=== PATIENT | male | born 1965 | race Hispanic/Latino ===

== ENCOUNTER 2017-06-21 17:50 | Emergency (ER) | payer OTHER ==
[~2017-06-21] VITALS: Ht 167.6 cm; Wt 95.7 kg
[2017-06-21] MEDS ORDERED: DIPHTH/TETANUS/ACEL. PERTUSSIS 0.5 ML SYR IM ONE (18:30)
[2017-06-21 19:10] VITALS: BP 138/82
== END 2017-06-21 19:00 | disposition home or self-care (01) ==
LOC: FSED 17:50
DX: S61.217A Laceration without foreign body of left little finger without damage to nail, initial encounter (principal); W29.3XXA Contact with powered garden and outdoor hand tools and machinery, initial encounter; Y92.008 Other place in unspecified non-institutional (private) residence as the place of occurrence of the external cause; I10 Essential (primary) hypertension; E11.9 Type 2 diabetes mellitus without complications; E78.5 Hyperlipidemia, unspecified
CPT/HCPCS: 99283

== ENCOUNTER → 2018-09-20 | Outpatient (CLI) | payer OTHER ==
--- NOTE | 2018-09-20 11:18 | Diagnostic Imaging Report ---
EXAM: US ABDOMEN COMPLETE INDICATION: Left upper quadrant pain. COMPARISON: None TECHNIQUE: Transverse and longitudinal brown scale and color doppler sonographic images of the abdomen were obtained. FINDINGS: LIVER 15.3 cm in the right midclavicular line. Increased echogenicity of the liver with normal contour, no masses. SPLEEN 8.9 cm in maximum diameter. Normal echogenicity, no masses. GALLBLADDER No gallbladder wall thickening, distension, stone, or pericholecystic fluid. Negative reported sonographic Garces's sign. BILE DUCTS No intra nor extra-hepatic biliary dilation. Common bile duct measures 0.3 cm PANCREAS: Obscured by overlying bowel gas. RIGHT KIDNEY: 10.1 cm Echogenicity: Normal Collecting System: No hydronephrosis Stones: None Cyst/Mass: None LEFT KIDNEY: 11.7 cm Echogenicity: Normal Collecting System: No hydronephrosis Stones: None Cyst/Mass: None VESSELS: Aorta: Partially obscured by overlying bowel gas. Inferior Vena Cava: Visualized portions are normal Main Portal Vein: 0.8 cm, normal size with hepatopetal flow. FREE FLUID: None IMPRESSION: Hepatic steatosis. Signed by: Dr. Jeyson Staton MD on 09/20/2018 11:15 AM
== END ==
LOC: US 09:16
PROVIDERS: ATTEND Family Medicine
DX: R10.12 Left upper quadrant pain (principal); K76.0 Fatty (change of) liver, not elsewhere classified
CPT/HCPCS: 76700

== ENCOUNTER → 2018-10-12 | Day surgery (SDC) | payer OTHER ==
[2018-10-06 12:33] LABS: BASOPHILS % 0.5 % (0.0-1.0); EOSINOPHILS # (AUTO) 0.2 (0.0-0.4); EOSINOPHILS % 1.9 % (0.0-6.0); HEMATOCRIT 47.2 % (38.2-49.6); HEMOGLOBIN 16.2 g/dL (14.0-18.0); LYMPHOCYTES # (AUTO) 3.2 (1.0-3.2); LYMPHOCYTES % 40.8 % (18.0-39.1); MEAN CORPUSCULAR HEMOGLOBIN 29.9 pg (28-32); MEAN CORPUSCULAR HGB CONC 34.3 g/dL (31-35); MEAN CORPUSCULAR VOLUME 87.1 fL (81-99); MONOCYTES # (AUTO) 0.6 (0.2-0.8); NEUTROPHILS # (AUTO) 3.7 (2.1-6.9); NEUTROPHILS % 48.3 % (38.7-80.0); PLATELET COUNT 213 x10e3/uL (140-360); RED BLOOD COUNT 5.42 x10e6/uL (4.3-5.7); RED CELL DISTRIBUTION WIDTH 12.6 % (11.7-14.4)
[2018-10-06 13:09] LABS: ANION GAP 13.8 mmol/L (8-16); BLOOD UREA NITROGEN 11 mg/dL (7-26); BUN/CREATININE RATIO 13 (6-25); CALCIUM 9.8 mg/dL (8.4-10.2); CARBON DIOXIDE 31 mmol/L (22-29); CHLORIDE 98 mmol/L (98-107); CREATININE, SERUM 0.87 mg/dL (0.72-1.25); EST GLOMERULAR FILTRATION RATE > 60 ML/MIN (60-); GLUCOSE 147 mg/dL (74-118); POTASSIUM 3.8 mmol/L (3.5-5.1); SODIUM 139 mmol/L (136-145)
[~2018-10-12] MED LIST: ACETAMINOPHEN 1000 MG/100 ML 100 ML IV ONE; ACETAMINOPHEN 1000 MG/100 ML IV ONE; ASPIRIN325 MG PO; ATORVASTATIN CA20 MG PO; BUPIVACAINE 0.5%/EPI 30 ML SDV INJ ONE; CEFAZOLIN SOD 1 GM/NS 50ML 100 ML IV ONE; DEXAMETHASONE SOD PHOS INJ 4 MG/ML VIAL ONE; KETOROLAC TROMETHAMINE 30 MG/ML VIAL ONE; LIDOCAINE HCL 2% LOCAL INJ 5 ML SDV VIAL INJ ONE; LISINOPRIL10 MG PO; METFORMIN HCL500 MG PO; ONDANSETRON HCL INJ 2MG/ML 2ML 2 MG/ML VIAL ONE; PROPOFOL IV EMULSION 10 MG/ML 20 ML VIAL ONE; SEVOFLURANE INHAL SOLN 250 ML PEN BTL ONE
--- OUTSIDE RECORDS SUMMARY | 2018-10-12 10:22 | XMS REPORT | Clinical Summary ---
Author Author [facility] Address Unknown Phone Unavailable Care Team Providers Care Production Lapping Machine Operator Name Role Phone Rafi Park MD PCP Allergies No Known Allergies Medications End Date Status Medication Sig Dispensed Refills Start Date Active lisinopril-hydroCHLOROthi Take 1 tablet 0 azide by mouth (PRINZIDE,ZESTORETIC) daily. 20-25 mg per tablet Active metFORMIN (GLUCOPHAGE) Take 500 mg 0 500 MG tablet by mouth 2 (two) times daily with breakfast and dinner. Active atorvastatin (LIPITOR) 10 Take 10 mg by 0 MG tablet mouth nightly. Active cephalexin (KEFLEX) 500 Take 500 mg 0 MG capsule by mouth daily. Active aspirin 81 MG EC tablet Take 81 mg by 0 mouth daily. Active Problems Not on file Social History Date Tobacco Use Types Packs/Day Years Used Never Smoker Smokeless Tobacco: Never Used Alcohol Use Drinks/Week oz/Week Comments No Sex Assigned at Date Recorded Not on file Industry Job Start Date Occupation Not on file Not on file Not on file Travel End Travel History Travel Start No recent travel history available. Last Filed Vital Signs Not on file Plan of Treatment Not on file Results Not on fileafter 10/11/2017 Insurance Payer Benefit Subscriber ID Type Phone Address Plan / Group JUAN MARTINEZ xxxxxxxxxxx [employer]
--- OUTSIDE RECORDS SUMMARY | 2018-10-12 10:23 | XMS REPORT ---
Author Organization Unknown Address [address] [place] [address] Phone [phone] Care Team Providers Care Account Manager Education Name Role Phone Rafi Park Unavailable Unavailable Allergies Code Code System Name Reaction Severity Status Onset NKDA Medications Name Status Start Date Stop Date aspirin 81mg po qd Active Not available atorvastatin 10 mg tablet Active Not available lisinopril 20 mg-hydrochlorothiazide 25 mg tablet Active Not available metformin 500 mg tablet Active Not available Suprep Bowel Prep Kit 17.5 gram-3.13 gram-1.6 gram oral solution Active Not available Problems Name Status Onset Date Source Benign Essential Hypertension Active 05/13/2017 Mixed Hyperlipidemia Active 05/20/2017 Impaired Fasting Glycaemia Active 05/20/2017 Procedures Date Name Performed by 04/20/2017 Colonoscopy Information not available Notes: NO SURGERIES Lab Results Date Name Specimen Result Interpretation Description Value Range Status Address 05/20/2017 CBC W/ Auto Diff Wbc 7.71 x10*3/L 4.23-9.07 x10*3/L Final [facility]: [address] [place] [address] Rbc 5.41 10*12/L 4.63-6.08 10*12/L Final [facility]: [address] [place] [address] Hemoglobin 16.30 g/dL 13.70-17.50 g/dL Final [facility]: [address] [place] [address] Hematocrit 47.8 % 40.1-51.0 % Final [facility]: [address] Mcv 88.4 fL 80.0-100.0 fL Final [facility]: [address] [place] [address] Mch 30.1 pg 25.7-32.2 pg Final [facility]: [address] [place] [address] Mchc 34.1 g/dL 32.3-36.5 g/dL [facility] [address] [facility] [facility].0 fL 35.1-43.9 fL Final [facility]: [address] [place] Platelet Count 246.0 k/uL 163.0-337.0 k/uL Final [facility]: [address] [place] High Mpv 12.4 fL 7.5-11.5 fL [facility]: [address] [place] Neut% 54.0 % 34.0-67.9 % [facility]: [address] [place] Lymph% 36.6 % 21.8-53.1 % [facility]: [address] [place] Mon% 7.5 % 5.3-12.2 % [facility]: [address] [place] Eos% 1.6 % 0.8-7.0 % [facility]: [address] [place] Baso% 0.3 % 0.2-1.2 % [facility]: [address] [place] Neut# 4.2 x10*3/L 1.8-5.4 x10*3/L [facility]: [address] [place] Lymph# 2.8 x10*3/L 1.3-3.6 x10*3/L [facility]: [address] [place] Mon# 0.6 x10*3/L 0.3-0.8 x10*3/L [facility]: [address] [place] Eos# 0.12 x10*3/L 0.04-0.54 x10*3/L [facility]: [address] [place] Baso# 0.02 x10*3/L 0.01-0.08 x10*3/L Final [facility]: [address] [place] 05/20/2017 CMP, Serum or Plasma Alt 35 U/L 0-55 U/L [facility] [address] [facility] Ast 22 U/L 5-34 U/L Final [facility]: [address] [place] Bun 16.0 mg/dL 8.4-25.7 mg/dL Final [facility]: [address] [place] Alk Phos 67 unit/L 40-150 unit/L Final [facility]: [address] [place] High Glucose 115 mg/dL 70-99 mg/dL Final [facility]: [address] [place] Albumin 4.1 g/dL 3.5-5.0 g/dL [facility]: [address] [place] Creatinine 0.80 mg/dL 0.72-1.25 mg/dL [facility]: [address] [place] eGFR Non- >60 mL/min/1.73m2 >60 mL/min/1.73m2 Final [facility]: [address] [place] Total Bilirubin 0.6 mg/dL 0.2-1.2 mg/dL [facility]: [address] [place] eGFR - >60 mL/min/1.73m2 >60 mL/min/1.73m2 Final [facility]: [address] [place] Sodium 138 mEq/L 136-145 mEq/L [facility] [address] [facility] Potassium 4.5 mEq/L 3.5-5.1 mEq/L [facility]: [address] [place] Chloride 98 mmol/L 98-107 mmol/L [facility] [address] [facility] Total Protein 7.6 g/dL 6.4-8.3 g/dL [facility]: [address] [place] Calcium 9.3 mg/dL 8.4-10.2 mg/dL [facility]: [address] [place] High Co2 31.0 mmol/L 22.0-29.0 mmol/L [facility]: [address] [place] Anion Gap 9 calc Final [facility]: [address] [place] 05/20/2017 Lipid Panel, Serum Low Hdl 28 mg/dL 40-60 mg/dL Final [facility]: [address] [place] [address], [place] Triglyceride 112 mg/dL 0-149 mg/dL Final [facility]: [address] VLDL Calc. 22 mg/dL Final [facility]: [address] cholesterol/HDL Ratio 8.3 mg/dL Final [facility]: [address] High non-HDL Cholesterol Calc. 205 mg/dL 0-160 mg/dL Final [facility]: [address] High Cholesterol 233 mg/dL 0-199 mg/dL Final [facility]: [address] High LDL Calc. 183 mg/dL 0-130 mg/dL Final [facility]: [address] [place] [address], [place] 05/20/2017 TSH, Serum or Plasma Tsh 2.110 uIU/mL 0.350-4.940 uIU/mL Final [facility]: [address] [place] [address], [place] 05/20/2017 PSA, Serum or Plasma PSA, Total 0.78 NG/mL <4.00 NG/mL Final [facility]: [address] [place] [address], [place] 05/20/2017 HbA1C (Hemoglobin a1C), Blood High A1C W/eag 6.1 % 1.0-5.7 % Final [facility]: [address] Average Blood Glucose 128 mg/dL Final [facility]: [address] [place] [address], [place] 05/20/2017 Fecal Occult Blood, Stool Fecal Globin by Immunochemistry not detected Final [facility]: [address] [place] [address], [place] 05/20/2017 Urinalysis, Dipstick Color Color light yellow [facility]: [address] [place] [address], [place] Color Appearance clear [facility]: [address] [place] [address], [place] Color Glucose negative [facility]: [address] [place] [address], [place] Color Bilirubin negative [facility]: [address] [place] [address], [place] Color Ketones negative [facility]: [address] [place] [address], [place] Color Specific [place] 1.020 [facility]: [address] [facility] 5, [place] Color Blood negative [facility]: [address] [facility] 5, [place] Color PH 5.5 [facility]: [address] [facility] 5, [place] Color Protein negative [facility]: [address] [place] [address], [place] Color Urobilinogen 0.2 [facility] [address] [place] [address], [place] Color Nitrites negative [facility]: [address] [place] [address], [place] Color Leukocytes negative [facility]: [address] [place] [address], [place] Past Encounters 07/03/2017 Laceration of Finger; Impaired Fasting Glycaemia Rafi Park MD: [address] [address], Ph. 05/29/2017 Impaired Fasting Glycaemia; Mixed Hyperlipidemia; Essential Hypertension Rafi Park MD: [address] [address], Ph. 05/20/2017 Adult Health Examination; Body Mass Index 30+ - Obesity Rafi Park MD: [address] [address], Ph. 05/13/2017 Benign Essential Hypertension; Screening for Malignant Neoplasm of Colon; Immunization Refused; Family History of Cancer of Colon; Body Mass Index 30+ - Obesity Rafi Park MD: [address] [address], Ph. Social History Smoking Status Never Smoker Vaccine List Vaccine Type influenza, injectable, quadrivalent 05/20/20170.5 mL Td(adult) unspecified formulation 04/20/2009 06/21/2017 Plan of Care Reminders Provider Appointments None recorded. Lab None recorded. Referral None recorded. Procedures None recorded. Surgeries None recorded. Imaging None recorded. Vitals 07/03/2017 09:00AM Est Patient Height Weight BMI Blood Pressure 5 ft 6 in 208 lbs 33.6 kg/m2 138/76 mm[Hg] 05/29/2017 09:00AM Est Patient Height Weight BMI Blood Pressure 5 ft 6 in 212 lbs 34.2 kg/m2 130/86 mm[Hg] 05/20/2017 09:00AM Est CPX Height Weight BMI Blood Pressure 5 ft 6 in 211 lbs 34.1 kg/m2 120/84 mm[Hg] 05/13/2017 10:00AM New Patient Height Weight BMI Blood Pressure 5 ft 6 in 213 lbs 34.4 kg/m2 128/88 mm[Hg]
--- OUTSIDE RECORDS SUMMARY | 2018-10-12 10:23 | XMS REPORT ---
Author Author [facility] Address Unknown Phone Unavailable Care Team Providers Care Hplc Chemist Name Role Phone Patsy VIDAL Unavailable Unavailable Marina FELIZ Unavailable Unavailable Problems This patient has no known problems. Allergies, Adverse Reactions, Alerts This patient has no known allergies or adverse reactions. Medications This patient has no known medications. Results Test Description Test Time Test Comments Text Results Atomic Results Result Comments US ABDOMEN COMPLETE 2018-09-20 11:12:00 [place] [address] Patient Name: ZULEYMA HERNÁNDEZ MR #: [id number] : 1965 Age/Sex: 53/M Req #: [id number] Adm Physician: Ordered by: RADHA VIDAL M.D. Report #: [id number] Location: US Room/Bed: Procedure: [id number] US/US ABDOMEN COMPLETE Exam Date: 09/20/18 Exam Time: 1011 REPORT STATUS: Signed EXAM: US ABDOMEN COMPLETE INDICATION: Left upper quadrant pain. COMPARISON: None TECHNIQUE: Transverse and longitudinal brown scale and color doppler sonographic images of the abdomen were obtained. FINDINGS: LIVER 15.3 cm in the right midclavicular line. Increased echogenicity of the liver with normal contour, no masses. SPLEEN 8.9 cm in maximum diameter. Normal echogenicity, no masses. GALLBLADDER No gallbladder wall thickening, distension, stone, or pericholecystic fluid. Negative reported sonographic Garces's sign. BILE DUCTS No intra nor extra-hepatic biliary dilation. Common bile duct measures 0.3 cm PANCREAS: Obscured by overlying bowel gas. RIGHT KIDNEY: 10.1 cm Echogenicity: Normal Collecting System: No hydronephrosis Stones: None Cyst/Mass: None LEFT KIDNEY: 11.7 cm Echogenicity: Normal Collecting System: No hydronephrosis Stones: None Cyst/Mass: None VESSELS: Aorta: Partially obscured by overlying bowel gas. Inferior Vena Cava: Visualized portions are normal Main Portal Vein: 0.8 cm, normal size with hepatopetal flow. FREE FLUID: None IMPRESSION: Hepatic steatosis. Signed by: Dr. Analisa Smith MD on 09/20/2018 11:15 AM Dictated By: ANALISA SMITH MD 1115 Transcribed By: EUNICE on 09/20/18 1115 COPY TO: RADHA VIDAL M.D. POCT-GLUCOSE METER 2017-07-01 12:59:00 POC-GLUCOSE METER (BEAKER) (test nlnt=2479) 120 mg/dL 70-110 [address]ED AT [address] [address]
--- OUTSIDE RECORDS SUMMARY | 2018-10-12 10:23 | XMS REPORT | Encounter Summary ---
Author Organization Unknown Address [address] [place] [address] Phone [phone] Care Team Providers Care Regional Construction Manager Name Role Phone Rafi Park MD 3 [phone] Reason for Visit Left abdominal pain; hyperlipidemia; hypertension Instructions 1. Benign essential hypertension lisinopril 20 mg-hydrochlorothiazide 25 mg tablet 2. Mixed hyperlipidemia 3. Impaired fasting glycaemia 4. Left upper quadrant pain US, abdomen, complete 5. Pain in left foot podiatry referral - [facility] Discussion Note .f/u in 3 mths Patient educational handouts: No information available. Plan of Care Reminders Provider Appointments Est Patient 09/20/2018 10:30AM Rafi Park MD Lab None recorded. Referral Podiatry Referral 09/06/2018 Sadie Limon [facility] Procedures None recorded. Surgeries None recorded. Imaging US, Abdomen, Complete 09/06/2018 Patients [facility] (Imaging Scheduling) Medications Name Start Date aspirin 81mg po qd atorvastatin 20 mg tablet Take 1 tablet every day by oral route. lisinopril 20 mg-hydrochlorothiazide 25 mg tablet Take 1 tablet every day by oral route. metformin 500 mg tablet Take 2 tablets twice a day by oral route. Medications Administered None recorded. Vitals Height Weight BMI Blood Pressure 5 ft 6 in 208 lbs 33.6 kg/m2 126/80 mm[Hg] Lab Results None recorded. Allergies Code Code System Name Reaction Severity Status Onset NKDA Problems Name Status Onset Date Source Benign Essential Hypertension Active 05/13/2017 Mixed Hyperlipidemia Active 05/20/2017 Impaired Fasting Glycaemia Active 05/20/2017 Procedures Date Name Performed by 07/01/2017 Colonoscopy Information not available 09/06/2018 US, Abdomen, Complete [facility] (Imaging Scheduling) [address] [place] [address] (Work Place) Vaccine List Vaccine Type influenza, injectable, quadrivalent 05/20/20170.5 mL influenza, injectable, quadrivalent, preservative free 02/17/20180.5 mL Td(adult) unspecified formulation 04/20/2009 06/21/2017 Social History Smoking Status Never Smoker Past Encounters 09/06/2018 Benign Essential Hypertension; Mixed Hyperlipidemia; Impaired Fasting Glycaemia; Left Upper Quadrant Pain; Pain in Left Foot Rafi Park MD: [address] [facility], [address], [place] [address], Ph. History of Present Illness Hypertension Reported By: Patient Notes: No chest pain , no shortness of breath, no palpitations ,no dizziness , no diaphoresis , no weakness or numbness in arms or legs , no visual loss . Hyperlipidemia Reported By: Patient Notes: No chest pain , no shortness of breath, no palpitations ,no dizziness , no diaphoresis , no weakness or numbness in arms or legs , no visual loss . no muscle aches , no muscle weakness Note:Here with because he needs refills , No chest pain , no shortness of breath, no palpitations ,no dizziness , no diaphoresis , no weakness or numbness in arms or legs , no visual loss .Also c/o pain Lt upper quad pain x 2 yr , if he lifts something heavy it ( Lt upper quadrant hurts , & when coughing , no bulging only pain ; lasts - 1 hr . , no nausea, no vomiting , also c/o Lt sole hurting x 3 weeks rebeca on balls of the heels . only when walking.<div>Goes for a walk daily for 20 mins in am . Does not eat any b'fast .</div> Review of Systems:ROS as noted in the HPI Review of Systems None recorded. Physical Exam General Adult Exam (male), General Adult Exam (Female) Reported By: Patient Constitutional: General Appearance: well-developed, obese. Level of Distress: NAD. Ambulation: ambulating normally Psychiatric: Insight: good judgement. Mental Status: active and alert, normal mood, normal affect. Orientation: to time, to place, to person Head: Head: normocephalic, atraumatic Eyes: Lids and Conjunctivae: non-injected, no discharge, no pallor. Pupils: PERRLA. Corneas: grossly intact. EOM: EOMI. Lens: clear. Sclerae: non-icteric ENMT: Ears: no lesions on external ear, EACs clear, TMs clear. Hearing: no hearing loss. Nose: no lesions on external nose, nares patent, no septal deviation, no sinus tenderness, no nasal discharge, nasal passages clear. Lips, Teeth, and Gums: no mouth or lip ulcers, no bleeding gums, normal dentition. Oropharynx: moist mucous membranes, no erythema, no exudates, tonsils not enlarged Neck: Neck: supple, trachea midline, no masses, FROM. Lymph Nodes: no cervical LAD, no supraclavicular LAD, no axillary LAD. Thyroid: no enlargement, non- tender, no nodules Lungs: Respiratory effort: no dyspnea. Auscultation: breath sounds normal, good air movement, CTA except as noted, no wheezing, no rales/crackles, no rhonchi Cardiovascular: Heart Auscultation: RRR, normal S1, normal S2, no murmurs, no rubs, no gallops Abdomen: Bowel Sounds: normal. Inspection and Palpation: soft, no tenderness, no guarding, no rebound tenderness, no masses, no CVA tenderness; Lt upper quadrant closer to epigastric area discomfort + , but not today / pt. Liver: non-tender, no hepatomegaly Musculoskeletal:: Motor Strength and Tone: normal tone, normal motor strength. Joints, Bones, and Muscles: normal movement of all extremities, no contractures, no malalignment, no tenderness, no bony abnormalities. Extremities: no cyanosis, no edema, no varicosities; Balls of Lt foot 2nd & 3 rd & in between the 2 heads of metatarsals discomfort +, Neurologic: Gait and Station: normal gait, normal station. Cranial Nerves: grossly intact. Sensation: grossly intact Skin: Inspection and palpation: no lesions, good turgor, no jaundice, no rash, no abnormal nevi. Nails: normal Back: Thoracolumbar Appearance: normal curvature
--- OUTSIDE RECORDS SUMMARY | 2018-10-12 10:23 | XMS REPORT | Encounter Summary ---
Author Organization Unknown Address [address] [place] [address] Phone [phone] Care Team Providers Care Reference Data Expert Name Role Phone Rafi Park MD 3 [phone] Reason for Visit Annual physical - male with PSA; hyperlipidemia; hypertension; diabetes Instructions 1. Adult health examination urinalysis, dipstick CBC w/ auto diff CMP, serum or plasma lipid panel, serum TSH, serum or plasma PSA, serum or plasma 2. Body mass index 30+ - obesity aprenda acerca del peso saludable - [learning about healthy weight] ndice de masa corporal: instrucciones de cuidado - [body mass index: care instructions] 3. Depression screening 4. Mixed hyperlipidemia atorvastatin 20 mg tablet 5. Benign essential hypertension lisinopril 20 mg-hydrochlorothiazide 25 mg tablet 6. Impaired fasting glycaemia metformin 500 mg tablet HbA1c (hemoglobin A1c), blood 7. Pterygium ophthalmology referral - [facility] PLEASE CALL APTIENT AND SCHEDULE HIM AN APPOINTMENT. PER NEEDS NOTES FAXED TO [phone]. 8. Screening for malignant neoplasm of colon fecal occult blood, stool Discussion Note Continue to exercise 30 mins daily If you do not hear from us in 1 week after the labs are done ,pl call us for results f/u in 3 mth Plan of Care Reminders Provider Appointments Est Patient 09/14/2018 9:00AM Rafi Park MD Lab Urinalysis, Dipstick 06/08/2018 [facility] [place] CBC W/ Auto Diff 06/08/2018 [facility] CMP, Serum or Plasma 06/08/2018 [facility] Lipid Panel, Serum 06/08/2018 [facility] TSH, Serum or Plasma 06/08/2018 [facility] PSA, Serum or Plasma 06/08/2018 [facility] HbA1C (Hemoglobin a1C), Blood 06/08/2018 [facility] Fecal Occult Blood, Stool 06/08/2018 [facility] Referral Ophthalmology Referral 06/08/2018 [facility] Procedures None recorded. Surgeries None recorded. Imaging None recorded. Medications Name Start Date aspirin 81mg po qd atorvastatin 20 mg tablet Take 1 tablet every day by oral route. lisinopril 20 mg-hydrochlorothiazide 25 mg tablet Take 1 tablet every day by oral route. metformin 500 mg tablet Take 2 tablets twice a day by oral route. Medications Administered None recorded. Vitals Height Weight BMI Blood Pressure 5 ft 6 in 204 lbs 32.9 kg/m2 130/82 mm[Hg] Lab Results Date Name Specimen Result Interpretation Description Value Range Status Address 06/08/2018 Urinalysis, Dipstick Color Color yellow [facility] ([facility]) [facility]obby: [id number], [place] Color Appearance clear [facility]obby: [address], [place] Color Glucose negative [facility] Hobby: [address], [place] Color Bilirubin negative [facility]: [address], [place] Color Ketones negative [facility] Hobby: [address], [place] Color Specific [place] 1.030 [facility] Hobby: [address], [place] Color Blood negative [facility] Hobby: [address], [place] Color PH 5.5 [facility]: [address], [place] Color Protein negative [facility] Hobby: [address], [place] Color Urobilinogen 0.2 [facility]: [address], [place] Color Nitrites negative [facility] H[place]: [address], [place] Color Leukocytes negative [facility]: [address], [place] Allergies Code Code System Name Reaction Severity Status Onset NKDA Problems Name Status Onset Date Source Benign Essential Hypertension Active 05/13/2017 Mixed Hyperlipidemia Active 05/20/2017 Impaired Fasting Glycaemia Active 05/20/2017 Procedures Date Name Performed by 07/01/2017 Colonoscopy Information not available Vaccine List Vaccine Type influenza, injectable, quadrivalent 05/20/20170.5 mL influenza, injectable, quadrivalent, preservative free 02/17/20180.5 mL Td(adult) unspecified formulation 04/20/2009 06/21/2017 Social History Smoking Status Never Smoker Past Encounters 06/08/2018 Adult Health Examination; Body Mass Index 30+ - Obesity; Depression Screening; Mixed Hyperlipidemia; Benign Essential Hypertension; Impaired Fasting Glycaemia; Pterygium; Screening for Malignant Neoplasm of Colon Rafi Park MD: [id number], [address], [place] [address], Ph. History of Present Illness Hypertension Reported [...] . no muscle aches , no muscle weakness. Note:Here with to get med refills , Goes to walk 30 mins daily in am, No chest pain , no shortness of breath, no palpitations ,no dizziness , no diaphoresis , no weakness or numbness in arms or legs , no visual loss . 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 Physical Exam General Adult Exam (male) Reported By: Patient Constitutional: General Appearance: well-developed, obese; Halitosis filling up room. Level of Distress: NAD. Ambulation: ambulating normally Psychiatric: Insight: good judgement; pleasent. Mental Status: active and alert, normal mood, normal affect. Orientation: to time, to place, to person Head: Head: normocephalic, atraumatic Eyes: Lids and Conjunctivae: non-injected, no discharge, no pallor. Pupils: PERRLA. Corneas: grossly intact. EOM: EOMI. Lens: clear. Sclerae: non-icteric; 3 mm clear blister on Medial side of Lt cornea margin ++ ENMT: Ears: no lesions on external ear, EACs clear, TMs clear. Hearing: no hearing loss. Nose: no lesions on external nose, nares patent, no septal deviation, no sinus tenderness, no nasal discharge. Lips, Teeth, and Gums: no mouth or [...] Bowel Sounds: normal. Inspection and Palpation: soft, non-distended, no tenderness, no guarding, no rebound tenderness, no masses, no CVA tenderness. Liver: non-tender, no hepatomegaly Musculoskeletal:: Motor Strength and Tone: normal tone. Joints, Bones, and Muscles: normal movement of all extremities, no contractures, no malalignment, no tenderness. Extremities: no cyanosis, no edema, no varicosities Neurologic: Gait and Station: normal gait, normal station. Cranial Nerves: grossly intact. Sensation: grossly intact Skin: Inspection and palpation: no lesions, good turgor, no jaundice. Nails: normal Back: Thoracolumbar Appearance: normal curvature Notes: Alert, oriented x 3 , Cranial nerves 2-12 intact , Strength 5/5 in all 4 extremities , Gait - Normal , Speech - normal, Visual bustillos - Intact , Sensations - intact in all 4 extremities, DTR's - 2 + in all 4 extremities , No tremors, cerebellar signs intact , straight line walking test & finger nose test - normal, Rhomberg- Negative
--- OUTSIDE RECORDS SUMMARY | 2018-10-12 10:23 | XMS REPORT | Encounter Summary ---
Author Organization Unknown Address [address] [place] [address] Phone [phone] Care Team Providers Care Summer Intern Name Role Phone Rafi Park MD 3 [phone] Reason for Visit lab follow-up Instructions 1. Benign essential hypertension 2. Mixed hyperlipidemia 3. Impaired fasting glycaemia 4. Steatosis of liver 5. Left upper quadrant pain general surgery referral - Please call the patient and make an appointment Discussion Note Copy of report given to pt & reviewed result with pt & in room F/u in 3 mths Patient educational handouts: No information available. Plan of Care Reminders Provider Appointments None recorded. Lab None recorded. Referral General Surgery Referral 09/30/2018 Jaime Pena MD Procedures None recorded. Surgeries None recorded. Imaging None recorded. Medications Name Start Date aspirin 81mg po qd atorvastatin 20 mg tablet Take 1 tablet every day by oral route. lisinopril 20 mg-hydrochlorothiazide 25 mg tablet Take 1 tablet every day by oral route. meloxicam 7.5 mg tablet metformin 500 mg tablet Take 2 tablets twice a day by oral route. Medications Administered None recorded. Vitals Height Weight BMI Blood Pressure 5 ft 6 in 210 lbs 33.9 kg/m2 132/86 mm[Hg] Lab Results None recorded. Allergies Code Code System Name Reaction Severity Status Onset NKDA Problems Name Status Onset Date Source Benign Essential Hypertension Active 05/13/2017 Mixed Hyperlipidemia Active 05/20/2017 Impaired Fasting Glycaemia Active 05/20/2017 Steatosis of Liver Active 09/30/2018 Procedures Date Name Performed by 09/06/2018 US, Abdomen, Complete [facility] (Imaging Scheduling) [address] [place] [address] (Work Place) Vaccine List Vaccine Type influenza, injectable, quadrivalent 05/20/20170.5 mL influenza, injectable, quadrivalent, preservative free 02/17/20180.5 mL Td(adult) unspecified formulation 04/20/2009 06/21/2017 Social History Smoking Status Never Smoker Past Encounters 09/30/2018 Benign Essential Hypertension; Mixed Hyperlipidemia; Impaired Fasting Glycaemia; Steatosis of Liver; Left Upper Quadrant Pain Rafi Park MD: [id number], [address], [place] [address], Ph. 09/06/2018 Benign Essential Hypertension; Mixed Hyperlipidemia; Impaired Fasting Glycaemia; Left Upper Quadrant Pain; Pain in Left Foot Rafi Park MD: [id number], [address], [place] [address], Ph. History of Present Illness Note:Here to discuss to U/S report . Does not carry a list of meds , Still has some discomfort rebeca after lifting heavy objects , Does not eat b'fast despiting asking him to take it daily ( to avoid excessive eating later in [facility] day & night ) Review of Systems:ROS as noted in the HPI Review of Systems None recorded. Physical Exam General Adult Exam (Female) Reported By: Patient Constitutional: General Appearance: well-developed, morbidly obese. Level of Distress: NAD. Ambulation: ambulating [...] external nose, nares patent, no septal deviation, nasal passages clear, no sinus tenderness, no nasal discharge. Lips, [...] rebound tenderness, no masses, no CVA tenderness; obese, with vague discomfort in Lt upper quadrant. Liver: non-tender, no hepatomegaly Musculoskeletal:: Motor Strength and Tone: normal motor strength, normal tone. Joints, Bones, and Muscles: normal movement of all extremities, no bony abnormalities, no contractures, no malalignment, no tenderness. Extremities: no cyanosis, no edema, no varicosities Neurologic: Gait and Station: normal gait, normal station. Cranial Nerves: grossly intact. Sensation: grossly intact Skin: Inspection and palpation: no rash, no lesions, no abnormal nevi, good turgor, no jaundice. Nails: normal Back: Thoracolumbar Appearance: normal curvature
[2018-10-12 14:05] VITALS: BP 132/62
--- NOTE | 2018-10-13 04:21 | Operative Report ---
DATE OF PROCEDURE: 10/12/2018 SURGEON: Jaime Pena MD PREOPERATIVE DIAGNOSIS: Abdominal wall lipoma. POSTOPERATIVE DIAGNOSIS: Abdominal wall lipoma. OPERATIVE PROCEDURE: Excision of abdominal wall lipoma. ANESTHESIA: General. INDICATIONS FOR SURGERY: The patient is a 53-year-old male with history of chronic left subcostal abdominal pain. The patient has consented for excision lipoma of the left upper quadrant subcostal area under anesthesia with all attendant risks discussed. PROCEDURE FINDING: Lipoma in the left subcostal margin. DESCRIPTION OF PROCEDURE: The patient was brought to the OR intubated. The abdomen was prepped with alcohol and draped in sterile fashion. The area of palpable tenderness was identified in the left subcostal margin over which a transverse 5 cm incision was made approximately 1 to 2 fingerbreadths below the left subcostal margin extending through skin and subcutaneous tissue down to the fascia of the underlying rectus abdominis muscle. We then proceeded to dissect the area in the left subcostal margin and enucleated lipoma measuring approximately 4 x 4 cm. The lipoma was removed with sharp scissor dissection. The wound was irrigated. Bleeding points were cauterized. Hemostasis achieved. We then closed the wound by approximating the deep subcutaneous tissue with interrupted 3-0 Vicryl and the skin with subcuticular stitch of 4-0 Vicryl. Dermabond placed on skin. Dressing applied. The patient tolerated procedure well, was extubated and transported to recovery room. ESTIMATED BLOOD LOSS: 3 mL. Jaime Pena MD DNL/MODL /[id number]
== END | disposition home or self-care (01) ==
LOC: OR 10:21
PROVIDERS: ATTEND Surgery
DX: D17.1 Benign lipomatous neoplasm of skin and subcutaneous tissue of trunk (principal); Z01.810 Encounter for preprocedural cardiovascular examination; Z01.812 Encounter for preprocedural laboratory examination; I10 Essential (primary) hypertension; E11.9 Type 2 diabetes mellitus without complications; E78.5 Hyperlipidemia, unspecified; Z79.84 Long term (current) use of oral hypoglycemic drugs
CPT/HCPCS: 36415; 80048; 82948; 85025; 88304; 93005; J0690; J1100; J1885; J2001; J2405

== ENCOUNTER 2024-10-02 15:04 | Emergency (ER) | payer OTHER ==
[~2024-10-02] VITALS: Ht 167.6 cm; Wt 91.6 kg
[~2024-10-02 15:04] MED LIST changes: -ACETAMINOPHEN 1000 MG/100 ML 100 ML IV ONE; -ACETAMINOPHEN 1000 MG/100 ML IV ONE; +ACETAMINOPHEN-1 EAC4 PO; -BUPIVACAINE 0.5%/EPI 30 ML SDV INJ ONE; -CEFAZOLIN SOD 1 GM/NS 50ML 100 ML IV ONE; -DEXAMETHASONE SOD PHOS INJ 4 MG/ML VIAL ONE; -KETOROLAC TROMETHAMINE 30 MG/ML VIAL ONE; -LIDOCAINE HCL 2% LOCAL INJ 5 ML SDV VIAL INJ ONE; +METHOCARBAMOL750 MG PO; -ONDANSETRON HCL INJ 2MG/ML 2ML 2 MG/ML VIAL ONE; -PROPOFOL IV EMULSION 10 MG/ML 20 ML VIAL ONE; -SEVOFLURANE INHAL SOLN 250 ML PEN BTL ONE
[2024-10-02 15:15] VITALS: PULSE 102; RESP 16; TEMP 98.1; O2SAT 99
== END 2024-10-02 15:26 | disposition home or self-care (01) ==
LOC: ER 15:14
DX: K62.89 Other specified diseases of anus and rectum (principal); K59.00 Constipation, unspecified; Z98.890 Other specified postprocedural states; I10 Essential (primary) hypertension; E11.9 Type 2 diabetes mellitus without complications; E78.5 Hyperlipidemia, unspecified; M54.9 Dorsalgia, unspecified; G89.29 Other chronic pain
CPT/HCPCS: 99283